=== PATIENT | female | born 1975 | race Caucasian/White ===

== ENCOUNTER 2016-08-07 07:15 | Day surgery (SDC) | payer MEDICAID ==
[2016-08-05 12:23] LABS: BASOPHILS 0.2 % (0.0-2.0); HEMATOCRIT 43.3 % (36.0-48.0); HEMOGLOBIN 14.4 g/dL (12-16); IMMATURE GRANULOCYTES 0.5 % (0-5); LYMPHOCYTES 34.8 % (15-50); MCH 31.7 pg (26.0-34.0); MCHC 33.3 g/dL (31.0-37.0); MCV 95.4 fL (80.0-100.0); MEAN PLATELET VOLUME 11.3 fL (7.4-10.4); MONOCYTES 7.1 % (2-11); NEUTROPHILS 52.4 % (40-80); RBC 4.54 10x6/uL (4.00-5.40); RDW 12.6 % (11.5-14.5); WBC 8.9 10x3/uL (4.8-10.8)
[2016-08-05 12:28] LABS: PLATELET COUNT 232 10x3/uL (130-400)
--- NOTE | 2016-08-06 17:02 | HP ---
PATIENT: ROGERS CLEMENT MEDICAL RECORD: [id number] ACCOUNT: [id number] LOCATION:[facility] : 75 ADMISSION DATE: 08/07/16 HISTORY AND PHYSICAL EXAMINATION HISTORY OF PRESENT ILLNESS: This patient is a 41-year-old 4, para 3, AB 1, who desires sterilization by laparoscopic tubal ligation. MEDICAL HISTORY: DRUG ALLERGIES: None known. CURRENT MEDICATIONS: Low-Ogestrel, Wellbutrin and Ambien. Her current method of contraception is control pills. She lists Adderall for ADD. PREVIOUS SURGERIES: Breast enlargement in 1996. REVIEW OF SYSTEMS: No chest pain, no dyspnea. FAMILY HISTORY: Noncontributory. SOCIAL HISTORY: The patient is , nonsmoker, and occasional ethanol use. PHYSICAL EXAMINATION: GENERAL: A well-developed, well-nourished female in no distress. VITAL SIGNS: Her weight is 173, blood pressure 110/80. HEENT: Unremarkable. LUNGS: Clear. HEART: Regular rate and rhythm. BREASTS: Unremarkable. ABDOMINAL AND PELVIC: Deferred for anesthesia. EXTREMITIES: No cyanosis, clubbing or edema. IMPRESSION: Undesired fertility, desires laparoscopic tubal ligation. PLAN: Laparoscopic tubal ligation under general anesthesia on August 07. I have discussed with the patient the risks of surgery including anesthesia, infection, bleeding and injury to other organs. Also discussed failure rates for tubal procedures and answered all her questions. A spouse was present for discussion. TRANSINT:[id number] Voice Confirmation ID: [id number] DOCUMENT ID: [id number] DORA LAMBERT MD at 1702 CC: [id number] DICTATION DATE: 08/05/16 170 EXTRA GANG SUPERVISOR: 08/05/16 1813 [facility] [address] [place] [address]
[~2016-08-07] VITALS: Ht 167.6 cm; Wt 78.5 kg
[~2016-08-07 07:15] MED LIST: ADDERALL 15 MG15 MG PO; BUPROPION XL300 MG PO; IBUPROFEN600 MG PO; PERCOCET 5-3251 TAB PO; PRENATAL COMPLE1 TAB PO
[2016-08-07 09:07] VITALS: BP 120/85; Ht 167.6 cm; Wt 78.5 kg
[2016-08-07 09:31] LABS: HCG URINE NEGATIVE (NEGATIVE)
--- NOTE | 2016-08-07 13:45 | NUR ---
DISCHARGE INSTRUCTIONS AND RX GIVEN, VOICED UNDERSTANDING. DISCHARGED HOME VIA WC.
--- NOTE | 2016-08-09 17:28 | OP ---
PATIENT NAME: ROGERS CLEMENT MEDICAL RECORD: [id number] :75 LOCATION:[facility] ADMISSION DATE: SURGEON: DORA LAMBERT MD DATE OF OPERATION: 08/07/2016 PREOPERATIVE DIAGNOSIS: Undesired fertility. POSTOPERATIVE DIAGNOSIS: Undesired fertility. PROCEDURE: Laparoscopic bilateral tubal ligation. ANESTHESIA: General. FINDINGS: Normal appearing tubes, pelvic anatomy. ESTIMATED BLOOD LOSS: Minimal. COMPLICATIONS: None. OPERATIVE NOTE: The patient was taken to the OR and under adequate general anesthesia, prepped and draped in the usual manner for abdominal and vaginal procedures with legs in floating boot Moises stirrups. The anterior lip of the cervix was grasped with tenaculum. Intrauterine manipulator was placed and stabilized. Pizano catheter was then inserted. An elliptical incision was made at the umbilicus and extended through subcutaneous tissue, fascia and peritoneum under direct visualization. A laparoscopic trocar sleeve was then inserted. Abdomen was inflated with gas. A second puncture was made in the left lower quadrant under direct visualization. Findings were as listed above. Filshie clips were then placed on the right and left tube times 2 each near the uterine cornu for complete obstruction of both tubes. Positions were observed to be adequate for complete obstruction. Abdomen was then deflated. There was no bleeding. Umbilical incision was then closed with #1 Vicryl fascial interrupted suture. Skin incision closed with Dermabond at the umbilicus and left lower quadrant. Steri-Strip dressing placed on the left lower quadrant incision and a Band-Aid was placed across the umbilical incision. Vaginal instruments were then removed. Pizano catheter removed and the patient went to recovery area in good condition. TRANSINT:[id number] Voice Confirmation ID: [id number] DOCUMENT ID: [id number] DORA LAMBERT MD at 1728 CC: [id number] DICTATION DATE: 08/07/16 1154 HEAD CHEF: 08/07/16 1208 [facility] 08/07/[address] [address]
== END 2016-08-07 13:45 | disposition home or self-care (01) ==
LOC: D.OPS 07:15 → D.PAN 10:00 → D.OPS 10:00
PROVIDERS: Obstetrics & Gynecology
DX: Z30.2 Encounter for sterilization (principal)

== ENCOUNTER 2019-02-15 13:58 | Emergency (ER) | payer MEDICAID ==
[~2019-02-15] VITALS: Ht 167.6 cm; Wt 75.0 kg
[2019-02-15 14:18] VITALS: Ht 167.6 cm; Wt 75.0 kg
[2019-02-15 14:44] LABS: BASOPHILS 0.2 % (0-2); EOSINOPHILS 4.6 % (0-7); HEMATOCRIT 39.4 % (36.0-48.0); HEMOGLOBIN 13.5 g/dL (12-16); IMMATURE GRANULOCYTES 0.3 % (0-5); LYMPHOCYTES 36.2 % (15-50); MCH 32.4 pg (26.0-34.0); MCHC 34.3 g/dL (31.0-37.0); MCV 94.5 fL (80.0-100.0); MONOCYTES 6.7 % (2-11); PLATELET COUNT 208 10x3/uL (130-400); RBC 4.17 10x6/uL (4.00-5.40); RDW 13.3 % (11.5-14.5); WBC 10.5 10x3/uL (4.8-10.8)
[2019-02-15 15:01] LABS: APTT 25.4 SECONDS (22.8-39.4); INR 0.97 (0.85-1.17); PROTIME 12.4 SECONDS (11.6-15.0)
[2019-02-15 15:11] LABS: ALBUMIN 3.7 g/dL (3.4-5.0); ALKALINE PHOSPHATASE 78 U/L (46-116); ALT (SGPT) 28 U/L (10-68); BILIRUBIN - TOTAL 0.61 mg/dL (0.2-1.3); CALC OSMOLALITY 281 mosm/kg (275-300); CALCIUM 8.5 mg/dL (8.5-10.1); CARBON DIOXIDE 25.9 mmol/L (21.0-32.0); CHLORIDE - SERUM 105 mmol/L (98-107); GLUCOSE 84 mg/dL (74-106); POTASSIUM - SERUM 3.3 mmol/L (3.5-5.1); PROTEIN - SERUM 7.2 g/dL (6.4-8.2); SODIUM 142 mmol/L (136-145); UREA NITROGEN 13 mg/dL (7-18); eGFR NON AFRICAN AMERICAN 64 mL/min (90-120)
[2019-02-15 15:19] LABS: CKMB 1.7 U/L (0.0-3.6); CREATINE KINASE 125 UL (21-215); MAGNESIUM - SERUM 1.7 mg/dL (1.8-2.4); TROPONIN-I < 0.017 ng/mL (0.000-0.060)
[2019-02-15 16:56] LABS: UDS - AMPHET POSITIVE QUAL (NEGATIVE); UDS - BARB NEGATIVE QUAL (NEGATIVE); UDS - BENZO NEGATIVE QUAL (NEGATIVE); UDS - COCAINE NEGATIVE QUAL (NEGATIVE); UDS - OPIATE NEGATIVE QUAL (NEGATIVE); UDS - PCP NEGATIVE QUAL (NEGATIVE); UDS - THC NEGATIVE QUAL (NEGATIVE)
[2019-02-15] MEDS ORDERED: VISTARIL25 MG PO (16:59)
[2019-02-15 17:03] LABS: APPEARANCE HAZY (CLEAR); BILIRUBIN NEGATIVE (NEGATIVE); COLOR YELLOW (YELLOW); GLUCOSE NEGATIVE (NEGATIVE); KETONE MODERATE mg/dL (NEGATIVE); NITRITE NEGATIVE (NEGATIVE); PROTEIN NEGATIVE (NEGATIVE); UROBILINOGEN NORMAL (NORMAL)
[2019-02-15 17:04] LABS: BACTERIA MODERATE /hpf (NONE SEEN); RED CELLS - URINE 0-5 /hpf (0-5); YEAST >1+ WITH HYPHAE /hpf (NONE SEEN)
[2019-02-15 17:05] LABS: MUCUS <1+ /lpf (NONE SEEN)
[2019-02-15] MEDS ORDERED: MACROBID100 MG PO (17:24)
[2019-02-15 17:38] VITALS: BP 139/93
== END 2019-02-15 17:39 | disposition home or self-care (01) ==
LOC: D.ER 13:58
PROVIDERS: Family Medicine
DX: R07.9 Chest pain, unspecified (principal); R00.2 Palpitations; N39.0 Urinary tract infection, site not specified